=== PATIENT | female | born 1980 | race Caucasian/White ===

== ENCOUNTER 2020-04-14 00:41 | Emergency (ER) | payer BC ==
--- NOTE | 2020-04-14 01:09 | EDM.PDOC ---
ED HPI GENERAL MEDICAL PROBLEM - General Chief Complaint: Back Pain or Injury Stated Complaint: LEFT ABD SHARP PAIN Time Seen by Provider: 04/14/20 01:01 Source of Information: Reports: Patient History Limitations: Reports: No Limitations - History of Present Illness INITIAL COMMENTS - FREE TEXT/NARRATIVE: 39-year-old female with left flank pain and nausea and vomiting for the past day. Onset: Today Duration: Day(s): Location: Reports: Abdomen, Back Quality: Reports: Ache Severity: Moderate Improves with: Reports: None Worsens with: Reports: None Left Abdominal Pain Score (Numeric/FACES): 9 - Related Data Allergies Allergy/AdvReac Type Severity Reaction Status Date / Time No Known Allergies Allergy Verified 04/14/20 01:11 Home Meds: Home Meds Ketorolac [Toradol] 10 mg PO TID PRN #30 tab 04/14/20 [Rx] Ondansetron [Zofran ODT] 4 mg PO Q6H PRN #30 tab.dis 04/14/20 [Rx] Tamsulosin HCl [Flomax] 0.4 mg PO DAILY #14 cap.er.24h 04/14/20 [Rx] Past Medical History HEENT History: Reports: Impaired Vision Cardiovascular History: Reports: None 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 Respiratory: Reports: Asthma : Reports: Renal Calculus OBGYN: Reports: Neurological: Reports: Migraines Endocrine/Metabolic: Reports: Hypothyroidism Oncologic: Reports: Skin ED ROS GENERAL - Review of Systems Review Of Systems: See Below Constitutional: Reports: No Symptoms HEENT: Reports: No Symptoms Respiratory: Reports: No Symptoms Cardiovascular: Reports: No Symptoms Endocrine: Reports: No Symptoms GI/Abdominal: Reports: Abdominal Pain, Nausea, Vomiting : Reports: Flank Pain Musculoskeletal: Reports: Back Pain Skin: Reports: No Symptoms Neurological: Reports: No Symptoms Psychiatric: Reports: No Symptoms Hematologic/Lymphatic: Reports: No Symptoms Immunologic: Reports: No Symptoms ED EXAM,LOWER BACK PAIN/INJURY - Physical Exam Exam: See Below Exam Limited By: No Limitations General Appearance: Alert, WD/WN, No Apparent Distress Eye Exam: Bilateral Eye: Normal Fundi, Normal Inspection Ears: Normal External Exam, Normal Canal, Hearing Grossly Normal, Normal TMs Nose: Normal Inspection, Normal Mucosa, No Blood Throat/Mouth: Normal Inspection, Normal Lips, Normal Teeth, Normal Gums, Normal Oropharynx, Normal Voice, No Airway Compromise Head: Atraumatic, Normocephalic Neck: Normal Inspection, Supple, Non-Tender, Full Range of Motion Respiratory/Chest: No Respiratory Distress Cardiovascular: Normal Peripheral Pulses, Regular Rate, Rhythm, No Edema, No Gallop, No JVD, No Murmur, No Rub GI/Abdominal: No Organomegaly, No Distention, No Abnormal Bruit, No Mass, Tender (Female) Exam: Deferred Rectal (Female) Exam: Deferred Back Exam: CVA Tenderness (L) Extremities: Normal Inspection, Normal Range of Motion, Non-Tender, No Pedal Edema, Normal Capillary Refill Neurological: Alert, Normal Mood/Affect, Normal Dorsiflexion, CN II-XII Intact, Normal Plantar Flexion, Normal Gait, Normal Reflexes, No Motor/Sensory Deficits , Oriented x 3 Psychiatric: Normal Affect, Normal Mood Skin Exam: Warm, Dry, Intact, Normal Color, No Rash Course - Vital Signs Text/Narrative:: Patient found to have a 6 to 7 mm stone in the left ureter with hydro. And will be followed up with the urologist and given medications. Last Recorded V/S: Last Vital Signs Temp 97.1 F 04/14/20 01:05 Pulse 81 04/14/20 02:53 Resp 14 04/14/20 02:53 BP 112/69 04/14/20 02:53 Pulse Ox 96 04/14/20 02:53 - Orders/Labs/Meds Labs: Laboratory Tests 04/14/20 04/14/20 04/14/20 Range/Units 01:19 01:19 01:26 WBC 12.96 H (4.0-11.0) K/uL RBC 4.24 L (4.30-5.90) M/uL Hgb 13.3 (12.0-16.0) g/dL Hct 40.0 (36.0-46.0) % MCV 94.3 (80.0-98.0) fL MCH 31.4 (27.0-32.0) pg MCHC 33.3 (31.0-37.0) g/dL RDW Std Deviation 40.4 (28.0-62.0) fl RDW Coeff of Jennifer 12 (11.0-15.0) % Plt Count 286 (150-400) K/uL MPV 9.70 (7.40-12.00) fL Neut % (Auto) 78.9 (48.0-80.0) % Lymph % (Auto) 12.5 L (16.0-40.0) % [place] % (Auto) 7.6 (0.0-15.0) % Eos % (Auto) 0.8 (0.0-7.0) % Baso % (Auto) 0.2 (0.0-1.5) % Neut # (Auto) 10.2 H (1.4-5.7) K/uL Lymph # (Auto) 1.6 (0.6-2.4) K/uL [place] # (Auto) 1.0 H (0.0-0.8) K/uL Eos # (Auto) 0.1 (0.0-0.7) K/uL Baso # (Auto) 0.0 (0.0-0.1) K/uL Nucleated RBC % 0.0 /100WBC Nucleated RBCs # 0 K/uL Sodium (136-145) mmol/L Potassium (3.5-5.1) mmol/L Chloride (98-107) mmol/L Carbon Dioxide (21.0-32.0) mmol/L BUN (7.0-18.0) mg/dL Creatinine (0.6-1.0) mg/dL Est Cr Clr Drug Dosing mL/min Estimated GFR (MDRD) ml/min Glucose (74-106) mg/dL Calcium (8.5-10.1) mg/dL Total Bilirubin (0.2-1.0) mg/dL AST (15-37) IU/L ALT (14-63) IU/L Alkaline Phosphatase (46-116) U/L Total Protein (6.4-8.2) g/dL Albumin (3.4-5.0) g/dL Globulin (2.6-4.0) g/dL Albumin/Globulin Ratio (0.9-1.6) Urine Color YELLOW Urine Appearance CLEAR Urine pH 7.5 (5.0-8.0) Ur Specific [place] 1.020 (1.001-1.035) Urine Protein NEGATIVE (NEGATIVE) mg/dL Urine Glucose (UA) NEGATIVE (NEGATIVE) mg/dL Urine Ketones NEGATIVE (NEGATIVE) mg/dL Urine Occult Blood SMALL H (NEGATIVE) Urine Nitrite NEGATIVE (NEGATIVE) Urine Bilirubin NEGATIVE (NEGATIVE) Urine Urobilinogen 0.2 (<2.0) EU/dL Ur Leukocyte Esterase NEGATIVE (NEGATIVE) Urine RBC 0-2 (0-2/HPF) Urine WBC 0-1 (0-5/HPF) Ur Epithelial Cells RARE (NONE-FEW) Urine Bacteria RARE (NEGATIVE) Urine HCG, Qual NEGATIVE (NEGATIVE) 04/14/20 Range/Units 01:26 WBC (4.0-11.0) K/uL RBC (4.30-5.90) M/uL Hgb (12.0-16.0) g/dL Hct (36.0-46.0) % MCV (80.0-98.0) fL MCH (27.0-32.0) pg MCHC (31.0-37.0) g/dL RDW Std Deviation (28.0-62.0) fl RDW Coeff of Jennifer (11.0-15.0) % Plt Count (150-400) K/uL MPV (7.40-12.00) fL Neut % (Auto) (48.0-80.0) % Lymph % (Auto) (16.0-40.0) % [place] % (Auto) (0.0-15.0) % Eos % (Auto) (0.0-7.0) % Baso % (Auto) (0.0-1.5) % Neut # (Auto) (1.4-5.7) K/uL Lymph # (Auto) (0.6-2.4) K/uL [place] # (Auto) (0.0-0.8) K/uL Eos # (Auto) (0.0-0.7) K/uL Baso # (Auto) (0.0-0.1) K/uL Nucleated RBC % /100WBC Nucleated RBCs # K/uL Sodium 139 (136-145) mmol/L Potassium 3.4 L (3.5-5.1) mmol/L Chloride 103 (98-107) mmol/L Carbon Dioxide 25.5 (21.0-32.0) mmol/L BUN 13 (7.0-18.0) mg/dL Creatinine 0.9 (0.6-1.0) mg/dL Est Cr Clr Drug Dosing 83.23 mL/min Estimated GFR (MDRD) > 60.0 ml/min Glucose 141 H (74-106) mg/dL Calcium 8.6 (8.5-10.1) mg/dL Total Bilirubin 0.1 L (0.2-1.0) mg/dL AST 15 (15-37) IU/L ALT 19 (14-63) IU/L Alkaline Phosphatase 60 (46-116) U/L Total Protein 7.0 (6.4-8.2) g/dL Albumin 3.7 (3.4-5.0) g/dL Globulin 3.3 (2.6-4.0) g/dL Albumin/Globulin Ratio 1.1 (0.9-1.6) Urine Color Urine Appearance Urine pH (5.0-8.0) Ur Specific [place] (1.001-1.035) Urine Protein (NEGATIVE) mg/dL Urine Glucose (UA) (NEGATIVE) mg/dL Urine Ketones (NEGATIVE) mg/dL Urine Occult Blood (NEGATIVE) Urine Nitrite (NEGATIVE) Urine Bilirubin (NEGATIVE) Urine Urobilinogen (<2.0) EU/dL Ur Leukocyte Esterase (NEGATIVE) Urine RBC (0-2/HPF) Urine WBC (0-5/HPF) Ur Epithelial Cells (NONE-FEW) Urine Bacteria (NEGATIVE) Urine HCG, Qual (NEGATIVE) Meds: Medications Discontinued Medications Generic Name Dose Route Start Last Admin Trade Name Freq PRN Reason Stop Dose Admin Sodium Chloride 1,000 mls @ 1,000 mls/hr 04/14/20 01:10 04/14/20 01:31 Normal Saline IV 04/14/20 02:09 1,000 mls/hr .Bolus ONE Administration Morphine Sulfate 6 mg 04/14/20 01:36 04/14/20 01:43 Morphine IVPUSH 04/14/20 01:37 6 mg ONETIME ONE Administration Ondansetron HCl 8 mg 04/14/20 01:10 04/14/20 01:31 Zofran IVPUSH 04/14/20 01:11 8 mg ONETIME ONE Administration Departure - Departure Time of Disposition: 03:18 Disposition: Home, Self-Care 01 Condition: Good Clinical Impression: Kidney stone on left side - Discharge Information *PRESCRIPTION DRUG MONITORING PROGRAM REVIEWED*: No Instructions: Kidney Stones, [id number] Referrals: Mary Miles DO [Primary Care Provider] - Forms: ED Department Discharge Additional Instructions: Patient is to follow-up with urologist. Patient is to take her medication as prescribed Sepsis Event Note - Focused Exam Vital Signs: Vital Signs Temp Pulse Resp BP Pulse Ox 04/14/20 02:53 81 14 112/69 96 04/14/20 02:29 73 14 119/74 96 04/14/20 01:30 63 16 136/95 H 100 04/14/20 01:05 97.1 F 89 20 136/104 H 98 Date Exam was Performed: 04/14/20 Time Exam was Performed: 03:17
[2020-04-14] MEDS ORDERED: Sodium Chloride 0.9% 1,000 ML IV ONE (01:10)
[2020-04-14] MEDS ORDERED: Ondansetron 4 MG/2 ML SDV IVPUSH ONE (01:10)
[2020-04-14] MEDS ORDERED: Morphine 10 MG/ML Syringe IVPUSH ONE (01:36)
[2020-04-14 01:52] LABS: BLOOD UREA NITROGEN,BUN 13 mg/dL (7.0-18.0); CARBON DIOXIDE,CO2 25.5 mmol/L (21.0-32.0); CHLORIDE,CL 103 mmol/L (98-107); GLUCOSE RANDOM 141 mg/dL (74-106); POTASSIUM,K 3.4 mmol/L (3.5-5.1); SODIUM,NA 139 mmol/L (136-145)
[2020-04-14 02:54] VITALS: BP 112/69; PULSE 81
--- NOTE | 2020-04-14 02:55 | CT ---
INDICATION: Left flank pain, hematuria TECHNIQUE: CT abdomen and pelvis without contrast. COMPARISON: None FINDINGS: Lower chest: 5 millimeter calcified benign appearing nodule right lower lobe. Liver: Unremarkable. Spleen: Unremarkable. Pancreas: Unremarkable. Gallbladder and bile ducts: Unremarkable. Kidneys: 6-7 millimeter calculus left UVJ with moderate left hydronephrosis. Punctate nonobstructing renal calculi left kidney. Adrenal glands: Unremarkable. GI tract: Unremarkable. Appendix is normal. Vascular structures: Unremarkable. Lymph nodes: Unremarkable. Miscellaneous: Unremarkable. No free air or significant free fluid. Pelvic Organs: Unremarkable. Bones: Unremarkable for age. IMPRESSION: 6-7 millimeter calculus left UVJ with moderate left hydronephrosis. Punctate nonobstructing calculi left kidney. Dictated by Danny Rodriguez MD @ 04/14/2020 2:52:56 AM Please note that all CT scans at this facility use dose modulation, iterative reconstruction, and/or weight-based dosing when appropriate to reduce radiation dose to as low as reasonably achievable. Dictated by: Danny Rodriguez MD @ 04/14/2020 02:53:02 (Electronically Signed)
== END 2020-04-14 03:40 | disposition home or self-care (01) ==
LOC: MW.ED 00:41
DX: N13.2 Hydronephrosis with renal and ureteral calculous obstruction (principal)
CPT/HCPCS: 36415; 74176; 80053; 81001; 81025; 85025; 96361; 96374; 96375; 99284; J2270; J2405; J7030; 99283